=== PATIENT | female | born 1940 | race Caucasian/White ===

== ENCOUNTER 2024-03-23 16:23 | Emergency (ER) | payer MEDICARE ==
[2024-03-23 16:58] LABS: #Basophils 0.1 thou/uL (0.0-0.2); #Monocytes 1.6 thou/uL (0.11-0.59); #Neutrophils 14.3 thou/uL (1.40-6.50); %Basophils 0.5 % (0.0-1.0); %Lymphocytes 6.1 % (21.0-51.0); %Monocytes 9.5 % (0.0-10.0); %Neutrophils 83.9 % (42.0-75.0); Hematocrit 37.2 % (36.0-47.0); Hemoglobin 11.8 g/dL (12.0-16.0); Mean Corpuscular HGB CONC 31.7 g/dL (32.0-36.0); Mean Corpuscular Hemoglobin 29.1 pg (27.0-31.0); Mean Corpuscular Volume 91.8 fl (78.0-98.0); Mean Platelet Volume 6.9 fL (7.4-10.4); Platelet Count 530 10x3/uL (130-400); RBC Distribution Width 13.8 % (11.5-14.5); Red Blood Cell (RBC) Count 4.06 mill/uL (4.20-5.40); White Blood Cell (WBC) Count 17.1 10x3/uL (4.8-10.8)
[2024-03-23 17:11] LABS: ALT (SGPT) 15 U/L (8-55); AST (SGOT) 16 U/L (5-34); Alkaline Phosphatase 183 U/L (40-110); Anion Gap 16 mmol/L (10-20); BUN (Urea Nitrogen) 24 mg/dL (9.8-20.1); Bilirubin, Total 0.5 mg/dL (0.2-1.2); Calc. Creatinine Clearance 0 mL/min (70-130); Calcium 8.9 mg/dL (7.8-10.44); Carbon Dioxide 24 mmol/L (23-31); Chloride 100 mmol/L (98-107); Estimated GFR 73; Globulin 4.6 g/dL (2.4-3.5); Glucose 122 mg/dL (83-110); Potassium 3.5 mmol/L (3.5-5.1); Protein, Total 7.6 g/dL (5.8-8.1); Sodium 136 mmol/L (136-145)
[2024-03-23 17:15] LABS: Troponin I 0.023 ng/mL (< 0.028)
[2024-03-23] MEDS ORDERED: Albuterol 2.5 MG (0.5 mL) NEB ONE (17:18)
[2024-03-23] MEDS ORDERED: Ipratropium Bromide 2.5 ml Neb ONE (17:18)
[2024-03-23] MEDS ORDERED: LevoFLOXacin 750 mg/D5W 150 ml Premix Bag ONE (18:00)
[2024-03-23] MEDS ORDERED: methylPREDNISolone Sod Succ/PF 125 MG/2 ML VIAL ONE (18:00)
[2024-03-23] MEDS ORDERED: NS 0.9% w/ 20 MEQ KCL 1,000 ML ONE (19:53)
[2024-03-23 20:29] LABS: Troponin I 0.018 ng/mL (< 0.028)
== END 2024-03-23 20:32 | disposition short-term general hospital (02) ==
LOC: BURERS 16:23
DX: J18.9 Pneumonia, unspecified organism (principal); J44.1 Chronic obstructive pulmonary disease with (acute) exacerbation; F17.210 Nicotine dependence, cigarettes, uncomplicated
CPT/HCPCS: 36415; 71045; 80053; 83605; 83880; 84484; 85025; 87040; 93005; 96374; 96375; J1956; J2930; J3480; J7611